=== PATIENT | female | born 1940 | race Two or more races ===

== ENCOUNTER 2019-09-26 13:10 | Inpatient (IN) | payer MEDICARE, MEDICAID ==
[~2019-09-26] VITALS: Ht 165.1 cm; Wt 56.9 kg
[2019-09-26] MEDS ORDERED: ONDANSETRON HCL 4MG/2ML INJ IV STA (13:42)
[2019-09-26] MEDS ORDERED: SODIUM CHLORIDE 0.9% 1,000 ML IV ONE ×2 (13:42→16:45)
[2019-09-26] MEDS ORDERED: MORPHINE SULFATE 4 MG/ML CPJ (NOT FOR IM USE) IV STA (13:42)
[2019-09-26 14:09] LABS: HEMATOCRIT. 39.6 % (36.0-48.0); HEMOGLOBIN. 13.3 g/dL (12.0-16.0); MEAN CORPUSCULAR HEMOGLOBIN 30.4 pg (28.0-32.0); MEAN CORPUSCULAR VOLUME 90.9 fL (81.0-99.0); RED BLOOD CELL COUNT 4.36 mill/uL (4.2-5.4); RED CELL DISTRIBUTION WIDTH 14.8 % (11.6-14.6)
[2019-09-26 14:15] LABS: CHLORIDE 99 mEq/L (98-107)
[2019-09-26 15:32] LABS: PROTHROMBIN TIME 10.2 sec (9.6-11.0)
[2019-09-26 15:39] LABS: MEAN PLATELET VOLUME 7.8 fl (7.4-10.4); PLATELET 266 x1000/uL (130-400)
[2019-09-26 15:41] LABS: PLATELET ESTIMATE NORMAL
[2019-09-26] MEDS ORDERED: CLONIDINE 0.1MG TABLET PO PRN (16:45)
[2019-09-26] MEDS ORDERED: ACETAMINOPHEN 325MG TABLET PO PRN (16:45)
[2019-09-26 21:00] VITALS: BP 139/82
[2019-09-26 22:00] VITALS: BP 119/76
[2019-09-26] MEDS ORDERED: CAND32TA8 PO (22:12)
[2019-09-26] MEDS ORDERED: AMLO5TAB88 PO (22:12)
[2019-09-26] MEDS ORDERED: ALEN70TA3 PO (22:12)
[2019-09-27] VITALS: BP 138/78
[2019-09-27] MEDS: HYDROCODONE/ACETAMINOPHEN 5/325MG TABLET PO PRN ×3 (02:37→23:25)
[2019-09-27 04:00] VITALS: BP 143/79
[2019-09-27 07:10] LABS: BASOPHILS % 0.2 % (0.0-2.0); HEMATOCRIT. 36.4 % (36.0-48.0); HEMOGLOBIN. 12.2 g/dL (12.0-16.0); LYMPHOCYTES % 8.3 % (20.0-50.0); MEAN CORPUSCULAR HEMOGLOBIN 30.6 pg (28.0-32.0); MEAN CORPUSCULAR VOLUME 91.6 fL (81.0-99.0); MONOCYTES % 7.8 % (2.0-8.0); NEUTROPHILS % 83.7 % (40.0-76.0); PLATELET 255 x1000/uL (130-400); RED BLOOD CELL COUNT 3.97 mill/uL (4.2-5.4); RED CELL DISTRIBUTION WIDTH 14.5 % (11.6-14.6)
[2019-09-27 07:12] LABS: CHLORIDE 98 mEq/L (98-107)
[2019-09-27 08:00] VITALS: BP 140/75
[2019-09-27] MEDS: ENOXAPARIN 40MG/0.4ML SYR SUBCUT SCH (09:23)
[2019-09-27] MEDS: AMLODIPINE 5MG TABLET PO SCH (09:24)
[2019-09-27] MEDS: SODIUM CHLORIDE 0.9% 1,000 ML IV SCH (10:45)
[2019-09-27 12:00] VITALS: BP 133/63
[2019-09-27 16:00] VITALS: BP 129/72
[2019-09-27 20:00] VITALS: BP 131/69
[2019-09-28] VITALS (7 sets, daily range): BP systolic 125–147; BP diastolic 67–94
[2019-09-28] MEDS: SODIUM CHLORIDE 0.9% 1,000 ML IV SCH (02:06)
[2019-09-28] MEDS: HYDROCODONE/ACETAMINOPHEN 5/325MG TABLET PO PRN (05:44)
[2019-09-28 07:28] LABS: CHLORIDE 100 mEq/L (98-107)
[2019-09-28 07:34] LABS: BASOPHILS % 0.7 % (0.0-2.0); EOSINOPHILS % 0.5 % (0.0-5.0); HEMATOCRIT. 33.7 % (36.0-48.0); HEMOGLOBIN. 11.4 g/dL (12.0-16.0); LYMPHOCYTES % 9.5 % (20.0-50.0); MEAN CORPUSCULAR HEMOGLOBIN 30.8 pg (28.0-32.0); MEAN CORPUSCULAR VOLUME 91.4 fL (81.0-99.0); MEAN PLATELET VOLUME 7.9 fl (7.4-10.4); MONOCYTES % 8.2 % (2.0-8.0); NEUTROPHILS % 81.1 % (40.0-76.0); PLATELET 220 x1000/uL (130-400); RED BLOOD CELL COUNT 3.69 mill/uL (4.2-5.4); RED CELL DISTRIBUTION WIDTH 14.5 % (11.6-14.6)
[2019-09-28] MEDS: AMLODIPINE 5MG TABLET PO SCH (09:00)
[2019-09-28] MEDS: ENOXAPARIN 40MG/0.4ML SYR SUBCUT SCH (09:00)
[2019-09-28] MEDS: DOCUSATE SODIUM 250MG CAPSULE PO SCH (11:00)
[2019-09-28] MEDS ORDERED: POTASSIUM CHLORIDE INJ 40 MEQ in DEXT 5% WATER 500 ML IV SCH (12:00)
[2019-09-28] MEDS: MORPHINE SULFATE 2 MG/ML CPJ (NOT FOR IM USE) IV PRN (13:30)
[2019-09-28] MEDS ORDERED: ROPIVACAINE HCL 10MG/ML 20 ML VIAL EPI ONE (17:23)
[2019-09-28] MEDS ORDERED: KETOROLAC 30MG/ML VIAL ONE (17:23)
[2019-09-28] MEDS ORDERED: MORPHINE SULFATE/PF 1MG/ML 10ML AMP ONE (17:23)
[2019-09-28] MEDS ORDERED: EPINEPHRINE 1:1000 1 MG/ML AMP ONE (17:23)
[2019-09-28] MEDS ORDERED: BACITRACIN 50,000 UNITS/VIAL ONE (17:24)
[2019-09-28] MEDS ORDERED: VANCOMYCIN HCL 1 GM/VIAL ONE (17:24)
[2019-09-28] MEDS ORDERED: TRANEXAMIC ACID 1,000 MG/10 ML IV SCH (17:30)
[2019-09-28] MEDS ORDERED: TRANEXAMIC ACID 1,000 MG in SODIUM CHLORIDE 0.9% 100 ML IV NR ×4 (17:30)
[2019-09-28] MEDS ORDERED: FENTANYL CITRATE/PF 50MCG/ML 2ML VIAL ONE (18:11)
[2019-09-28] MEDS ORDERED: MIDAZOLAM HCL 2 MG/2 ML VIAL ONE (18:12)
[2019-09-28] MEDS ORDERED: LIDOCAINE HCL/PF 1% 10 MG/ML 5ML VIAL ONE (18:12)
[2019-09-28] MEDS ORDERED: PHENYLEPHRINE HCL 10 MG/ML 1ML (IV VIAL) IV ONE (18:23)
[2019-09-28] MEDS ORDERED: STERILE WATER FOR INJECTION 10ML VIAL ONE (18:23)
[2019-09-28] MEDS ORDERED: ROCURONIUM BROMIDE 10MG/ML VIAL 5ML IV ONE (18:28)
[2019-09-28] MEDS ORDERED: ESMOLOL HCL 10MG/ML 10ML VIAL IV ONE (18:35)
[2019-09-28] MEDS ORDERED: EPHEDRINE SULFATE 50MG/ML VIAL ONE (18:39)
[2019-09-28] MEDS ORDERED: SODIUM CHLORIDE 0.9% 10ML VIAL ONE ×2 (18:39→18:54)
[2019-09-28] MEDS ORDERED: CEFAZOLIN SODIUM 1000MG/VIAL ONE (18:54)
[2019-09-28] MEDS ORDERED: DEXAMETHASONE 4MG/ML 1ML VIAL ONE (19:08)
[2019-09-28] MEDS ORDERED: ONDANSETRON HCL 4MG/2ML INJ ONE (19:10)
[2019-09-28] MEDS ORDERED: CEFAZOLIN 1000MG PREMIX 50 ML IV SCH (23:15)
[2019-09-28] MEDS ORDERED: KETOROLAC 30MG/ML VIAL IV PRN (23:15)
[2019-09-28] MEDS ORDERED: HYDROMORPHONE HCL/PF 2MG/ML CPJ IV PRN (23:45)
[2019-09-29] VITALS (73 sets, daily range): BP systolic 92–144; BP diastolic 43–127
[2019-09-29 00:47] LABS: BG BASE EXCESS -2.9 mmol/L (-2.0-2.0); BG CARBOXYHEMOGLOBIN 0.3 % (0.5-1.5); BG DEOXYHEMOGLOBIN 3.1 % (0.0-5.0); BG FRACTION INSPIRED OXYGEN 100; BG HCO3 ACT 21.3 mmol/L (22.0-26.0); BG METHEMOGLOBIN 0.1 % (0.0-1.5); BG OXYGEN SATURATION 96.9 % (92.0-98.5); BG OXYHEMOGLOBIN 96.5 % (94.0-97.0); BG PCO2 34.6 mmHg (35.0-45.0); BG PH 7.407 (7.350-7.450); BG PO2 92.3 mmHg (75.0-100.0); BG SAMPLE SITE RIGHT BRACHIAL; BG TIDAL VOLUME(mL) 500 mL; BG TOTAL HEMOGLOBIN 10.6 g/dL (12.0-18.0); BG VENT MODE VENT - A/C; BG VENT RATE 12 set
[2019-09-29] MEDS ORDERED: PROPOFOL 10MG/ML 100ML 100 ML IV PRN (01:00)
[2019-09-29 01:13] LABS: HEMATOCRIT. 30.6 % (36.0-48.0); HEMOGLOBIN. 10.3 g/dL (12.0-16.0); MEAN CORPUSCULAR VOLUME 91.6 fL (81.0-99.0); MEAN PLATELET VOLUME 7.5 fl (7.4-10.4); PLATELET 206 x1000/uL (130-400); RED BLOOD CELL COUNT 3.34 mill/uL (4.2-5.4); RED CELL DISTRIBUTION WIDTH 14.2 % (11.6-14.6)
[2019-09-29 01:18] LABS: CHLORIDE 101 mEq/L (98-107)
[2019-09-29 02:06] LABS: PLATELET ESTIMATE NORMAL
[2019-09-29] MEDS: CEFAZOLIN 1000MG PREMIX 50 ML IV SCH ×3 (03:15→19:02)
[2019-09-29] MEDS: SODIUM CHLORIDE 0.9% 1,000 ML IV SCH ×3 (03:15→15:54)
[2019-09-29 05:38] LABS: HEMATOCRIT. 27.8 % (36.0-48.0); HEMOGLOBIN. 9.6 g/dL (12.0-16.0); MEAN CORPUSCULAR HEMOGLOBIN 31.5 pg (28.0-32.0); MEAN CORPUSCULAR VOLUME 91.1 fL (81.0-99.0); MEAN PLATELET VOLUME 7.9 fl (7.4-10.4); PLATELET 192 x1000/uL (130-400); RED BLOOD CELL COUNT 3.06 mill/uL (4.2-5.4)
[2019-09-29 05:41] LABS: CHLORIDE 101 mEq/L (98-107)
[2019-09-29] MEDS: MORPHINE SULFATE 2 MG/ML CPJ (NOT FOR IM USE) IV PRN (08:08)
[2019-09-29 08:26] LABS: PLATELET ESTIMATE NORMAL
[2019-09-29] MEDS: AMLODIPINE 5MG TABLET PO SCH (09:00)
[2019-09-29] MEDS: DOCUSATE SODIUM 250MG CAPSULE PO SCH (09:00)
[2019-09-29] MEDS: ENOXAPARIN 40MG/0.4ML SYR SUBCUT SCH (09:00)
[2019-09-29] MEDS ORDERED: FUROSEMIDE 20MG/2ML VIAL IVP NR (10:15)
[2019-09-29 10:35] LABS: BG BASE EXCESS -1.9 mmol/L (-2.0-2.0); BG CARBOXYHEMOGLOBIN 0.3 % (0.5-1.5); BG DEOXYHEMOGLOBIN 1.8 % (0.0-5.0); BG FRACTION INSPIRED OXYGEN 100; BG HCO3 ACT 21.8 mmol/L (22.0-26.0); BG METHEMOGLOBIN 0.1 % (0.0-1.5); BG OXYGEN SATURATION 98.2 % (92.0-98.5); BG OXYHEMOGLOBIN 97.8 % (94.0-97.0); BG PCO2 32.8 mmHg (35.0-45.0); BG PO2 121.6 mmHg (75.0-100.0); BG SAMPLE SITE RIGHT RADIAL; BG TIDAL VOLUME(mL) 500 mL; BG TOTAL HEMOGLOBIN 9.8 g/dL (12.0-18.0); BG VENT MODE VENT - A/C; BG VENT RATE 12 set
[2019-09-29] MEDS ORDERED: IPRATROPIUM/ALBUTEROL 0.5-3(2.5)MG/3ML NEB HHN PRN (10:45)
[2019-09-29] MEDS ORDERED: IOHEXOL-350 100 ML BOTTLE ONE (11:48)
[2019-09-29] MEDS: PROPOFOL 10MG/ML 100ML 100 ML IV PRN (14:56)
[2019-09-29] MEDS: IPRATROPIUM/ALBUTEROL 0.5-3(2.5)MG/3ML NEB HHN SCH ×2 (15:10→20:24)
[2019-09-29] MEDS: ENOXAPARIN 60MG/0.6ML SYR SUBCUT SCH (15:47)
[2019-09-29] MEDS: PIPERACILLIN/TAZOBACTAM 3.375 G in DEXT 5% WATER 100 ML IV SCH (20:27)
[2019-09-30] VITALS (53 sets, daily range): BP systolic 94–136; BP diastolic 38–100
[2019-09-30] MEDS: IPRATROPIUM/ALBUTEROL 0.5-3(2.5)MG/3ML NEB HHN SCH ×4 (01:23→21:02)
[2019-09-30] MEDS: PIPERACILLIN/TAZOBACTAM 3.375 G in DEXT 5% WATER 100 ML IV SCH ×4 (01:55→20:49)
[2019-09-30] MEDS: CEFAZOLIN 1000MG PREMIX 50 ML IV SCH ×3 (02:30→21:29)
[2019-09-30] MEDS: PROPOFOL 10MG/ML 100ML 100 ML IV PRN ×2 (03:30→10:16)
[2019-09-30 05:31] LABS: CHLORIDE 101 mEq/L (98-107)
[2019-09-30 05:33] LABS: BASOPHILS % 0.2 % (0.0-2.0); EOSINOPHILS % 0.1 % (0.0-5.0); HEMOGLOBIN. 8.6 g/dL (12.0-16.0); MEAN CORPUSCULAR HEMOGLOBIN 31.5 pg (28.0-32.0); MEAN PLATELET VOLUME 8.2 fl (7.4-10.4); MONOCYTES % 9.2 % (2.0-8.0); NEUTROPHILS % 80.5 % (40.0-76.0); PLATELET 218 x1000/uL (130-400); RED BLOOD CELL COUNT 2.71 mill/uL (4.2-5.4); RED CELL DISTRIBUTION WIDTH 14.5 % (11.6-14.6)
[2019-09-30] MEDS: ENOXAPARIN 60MG/0.6ML SYR SUBCUT SCH ×2 (06:25→18:21)
[2019-09-30] MEDS: MORPHINE SULFATE 2 MG/ML CPJ (NOT FOR IM USE) IV PRN ×2 (08:01→17:34)
[2019-09-30] MEDS: AMLODIPINE 5MG TABLET PO SCH (08:01)
[2019-09-30] MEDS ORDERED: POTASSIUM CHLORIDE 20MEQ/PACKET PO NR (08:54)
[2019-09-30 08:57] LABS: BG CARBOXYHEMOGLOBIN 0.2 % (0.5-1.5); BG DEOXYHEMOGLOBIN 1.9 % (0.0-5.0); BG FRACTION INSPIRED OXYGEN 70; BG HCO3 ACT 22.2 mmol/L (22.0-26.0); BG METHEMOGLOBIN 0.4 % (0.0-1.5); BG OXYGEN SATURATION 98.1 % (92.0-98.5); BG OXYHEMOGLOBIN 97.5 % (94.0-97.0); BG PH 7.472 (7.350-7.450); BG PO2 121.5 mmHg (75.0-100.0); BG SAMPLE SITE RIGHT RADIAL; BG TIDAL VOLUME(mL) 500 mL; BG VENT MODE VENT - A/C; BG VENT RATE 12 set
[2019-09-30] MEDS: DOCUSATE SODIUM SUGAR FREE 100MG/10ML UDC NG SCH (09:05)
[2019-09-30 12:32] LABS: BG BASE EXCESS -1.2 mmol/L (-2.0-2.0); BG CARBOXYHEMOGLOBIN 0.3 % (0.5-1.5); BG DEOXYHEMOGLOBIN 5.9 % (0.0-5.0); BG FRACTION INSPIRED OXYGEN 50; BG HCO3 ACT 22.3 mmol/L (22.0-26.0); BG METHEMOGLOBIN 0.3 % (0.0-1.5); BG OXYGEN SATURATION 94.1 % (92.0-98.5); BG OXYHEMOGLOBIN 93.5 % (94.0-97.0); BG PCO2 32.1 mmHg (35.0-45.0); BG PH 7.459 (7.350-7.450); BG PRESSURE SUPPORT 8; BG SAMPLE SITE RIGHT RADIAL; BG VENT MODE VENT - CPAP
[2019-10-01] VITALS (48 sets, daily range): BP systolic 89–138; BP diastolic 40–75
[2019-10-01] MEDS: IPRATROPIUM/ALBUTEROL 0.5-3(2.5)MG/3ML NEB HHN SCH ×4 (01:44→20:05)
[2019-10-01] MEDS: PIPERACILLIN/TAZOBACTAM 3.375 G in DEXT 5% WATER 100 ML IV SCH ×4 (02:16→19:39)
[2019-10-01 05:37] LABS: BASOPHILS % 0.3 % (0.0-2.0); EOSINOPHILS % 0.3 % (0.0-5.0); HEMATOCRIT. 23.3 % (36.0-48.0); HEMOGLOBIN. 7.9 g/dL (12.0-16.0); LYMPHOCYTES % 15.4 % (20.0-50.0); MEAN CORPUSCULAR HEMOGLOBIN 31.2 pg (28.0-32.0); MEAN CORPUSCULAR VOLUME 91.5 fL (81.0-99.0); MEAN PLATELET VOLUME 7.7 fl (7.4-10.4); MONOCYTES % 9.3 % (2.0-8.0); NEUTROPHILS % 74.7 % (40.0-76.0); PLATELET 215 x1000/uL (130-400); RED BLOOD CELL COUNT 2.54 mill/uL (4.2-5.4); RED CELL DISTRIBUTION WIDTH 14.6 % (11.6-14.6)
[2019-10-01 06:04] LABS: CHLORIDE 102 mEq/L (98-107)
[2019-10-01] MEDS: ENOXAPARIN 60MG/0.6ML SYR SUBCUT SCH ×2 (06:04→17:05)
[2019-10-01] MEDS: AMLODIPINE 5MG TABLET PO SCH (08:35)
[2019-10-01] MEDS: HYDROCODONE/ACETAMINOPHEN 5/325MG TABLET PO PRN (08:35)
[2019-10-01] MEDS: DOCUSATE SODIUM SUGAR FREE 100MG/10ML UDC NG SCH (08:36)
[2019-10-01 09:09] LABS: BG BASE EXCESS 0.8 mmol/L (-2.0-2.0); BG CARBOXYHEMOGLOBIN 0.3 % (0.5-1.5); BG DEOXYHEMOGLOBIN 4.9 % (0.0-5.0); BG FRACTION INSPIRED OXYGEN 60; BG HCO3 ACT 24.6 mmol/L (22.0-26.0); BG METHEMOGLOBIN 0.3 % (0.0-1.5); BG OXYGEN SATURATION 95.1 % (92.0-98.5); BG OXYHEMOGLOBIN 94.5 % (94.0-97.0); BG PCO2 35.7 mmHg (35.0-45.0); BG PH 7.457 (7.350-7.450); BG PO2 72.1 mmHg (75.0-100.0); BG SAMPLE SITE RIGHT RADIAL; BG TOTAL HEMOGLOBIN 7.9 g/dL (12.0-18.0); BG VENT MODE MASK - AEROSOL
[2019-10-01] MEDS ORDERED: POTASSIUM CHLORIDE 20MEQ TABLET SR PO NR (11:00)
[2019-10-01] MEDS ORDERED: FUROSEMIDE 20MG/2ML VIAL IVP NR (11:00)
[2019-10-02] VITALS (11 sets, daily range): BP systolic 118–141; BP diastolic 58–96
[2019-10-02] MEDS: PIPERACILLIN/TAZOBACTAM 3.375 G in DEXT 5% WATER 100 ML IV SCH ×4 (01:33→20:27)
[2019-10-02] MEDS: IPRATROPIUM/ALBUTEROL 0.5-3(2.5)MG/3ML NEB HHN SCH ×4 (02:45→21:07)
[2019-10-02] MEDS: ENOXAPARIN 60MG/0.6ML SYR SUBCUT SCH ×2 (06:54→19:50)
[2019-10-02 06:55] LABS: BASOPHILS % 0.6 % (0.0-2.0); EOSINOPHILS % 1.5 % (0.0-5.0); HEMATOCRIT. 21.6 % (36.0-48.0); HEMOGLOBIN. 7.3 g/dL (12.0-16.0); LYMPHOCYTES % 22.4 % (20.0-50.0); MEAN PLATELET VOLUME 7.8 fl (7.4-10.4); MONOCYTES % 9.2 % (2.0-8.0); NEUTROPHILS % 66.3 % (40.0-76.0); PLATELET 244 x1000/uL (130-400); RED BLOOD CELL COUNT 2.35 mill/uL (4.2-5.4); RED CELL DISTRIBUTION WIDTH 14.6 % (11.6-14.6)
[2019-10-02] MEDS: DOCUSATE SODIUM SUGAR FREE 100MG/10ML UDC NG SCH (08:33)
[2019-10-02] MEDS: AMLODIPINE 5MG TABLET PO SCH (08:44)
[2019-10-02 09:38] LABS: CHLORIDE 103 mEq/L (98-107)
[2019-10-02] MEDS: ONDANSETRON HCL 4MG/2ML INJ IV PRN (11:36)
[2019-10-02 22:57] LABS: CLARITY URINE CLEAR (CLEAR); COLOR URINE YELLOW (YELLOW); KETONES URINE 4+ (NEGATIVE); LEUKOCYTE ESTERASE URINE NEGATIVE (NEGATIVE); NITRITE URINE NEGATIVE (NEGATIVE); OCCULT BLOOD URINE 1+ (NEGATIVE); PH URINE 5.5 (4.5-8.0); PROTEIN URINE 1+ (NEGATIVE); SPECIFIC GRAVITY URINE 1.025 (1.005-1.030)
[2019-10-03] VITALS (12 sets, daily range): BP systolic 125–143; BP diastolic 59–100
[2019-10-03] MEDS: IPRATROPIUM/ALBUTEROL 0.5-3(2.5)MG/3ML NEB HHN SCH ×4 (01:03→21:21)
[2019-10-03] MEDS: PIPERACILLIN/TAZOBACTAM 3.375 G in DEXT 5% WATER 100 ML IV SCH ×4 (02:15→19:40)
[2019-10-03] MEDS: ENOXAPARIN 60MG/0.6ML SYR SUBCUT SCH ×2 (06:31→19:39)
[2019-10-03 07:26] LABS: BASOPHILS % 0.7 % (0.0-2.0); EOSINOPHILS % 0.9 % (0.0-5.0); HEMATOCRIT. 22.7 % (36.0-48.0); HEMOGLOBIN. 7.6 g/dL (12.0-16.0); LYMPHOCYTES % 20.9 % (20.0-50.0); MEAN CORPUSCULAR HEMOGLOBIN 30.8 pg (28.0-32.0); MEAN CORPUSCULAR VOLUME 92.6 fL (81.0-99.0); MEAN PLATELET VOLUME 7.6 fl (7.4-10.4); MONOCYTES % 9.7 % (2.0-8.0); NEUTROPHILS % 67.8 % (40.0-76.0); PLATELET 303 x1000/uL (130-400); RED BLOOD CELL COUNT 2.45 mill/uL (4.2-5.4); RED CELL DISTRIBUTION WIDTH 14.1 % (11.6-14.6)
[2019-10-03 07:47] LABS: CHLORIDE 104 mEq/L (98-107)
[2019-10-03] MEDS: AMLODIPINE 5MG TABLET PO SCH (08:13)
[2019-10-03] MEDS: DOCUSATE SODIUM SUGAR FREE 100MG/10ML UDC NG SCH (08:13)
[2019-10-03] MEDS ORDERED: POTASSIUM CHLORIDE 20MEQ TABLET SR PO NR (09:30)
[2019-10-04] VITALS (12 sets, daily range): BP systolic 125–162; BP diastolic 36–85
[2019-10-04] MEDS: PIPERACILLIN/TAZOBACTAM 3.375 G in DEXT 5% WATER 100 ML IV SCH ×4 (02:41→20:25)
[2019-10-04] MEDS: IPRATROPIUM/ALBUTEROL 0.5-3(2.5)MG/3ML NEB HHN SCH ×4 (04:18→20:12)
[2019-10-04 06:10] LABS: BASOPHILS % 0.5 % (0.0-2.0); EOSINOPHILS % 1.6 % (0.0-5.0); HEMOGLOBIN. 7.8 g/dL (12.0-16.0); LYMPHOCYTES % 23.2 % (20.0-50.0); MEAN CORPUSCULAR HEMOGLOBIN 31.1 pg (28.0-32.0); MEAN CORPUSCULAR VOLUME 91.4 fL (81.0-99.0); MEAN PLATELET VOLUME 7.3 fl (7.4-10.4); NEUTROPHILS % 63.7 % (40.0-76.0); PLATELET 364 x1000/uL (130-400); RED BLOOD CELL COUNT 2.52 mill/uL (4.2-5.4); RED CELL DISTRIBUTION WIDTH 14.6 % (11.6-14.6)
[2019-10-04 06:14] LABS: CHLORIDE 102 mEq/L (98-107)
[2019-10-04] MEDS: ENOXAPARIN 60MG/0.6ML SYR SUBCUT SCH ×2 (06:29→17:03)
[2019-10-04] MEDS: AMLODIPINE 5MG TABLET PO SCH (08:19)
[2019-10-04] MEDS: DOCUSATE SODIUM SUGAR FREE 100MG/10ML UDC NG SCH (08:20)
[2019-10-04 11:22] LABS: TOTAL IRON BINDING CAPACITY 192 ug/dL (250-450)
[2019-10-05] VITALS (9 sets, daily range): BP systolic 118–148; BP diastolic 59–77
[2019-10-05] MEDS: IPRATROPIUM/ALBUTEROL 0.5-3(2.5)MG/3ML NEB HHN SCH ×3 (01:57→13:13)
[2019-10-05] MEDS: PIPERACILLIN/TAZOBACTAM 3.375 G in DEXT 5% WATER 100 ML IV SCH ×3 (02:12→15:04)
[2019-10-05] MEDS: ENOXAPARIN 60MG/0.6ML SYR SUBCUT SCH (05:26)
[2019-10-05 06:37] LABS: CHLORIDE 100 mEq/L (98-107)
[2019-10-05 06:45] LABS: BASOPHILS % 0.8 % (0.0-2.0); EOSINOPHILS % 2.6 % (0.0-5.0); HEMATOCRIT. 23.2 % (36.0-48.0); HEMOGLOBIN. 7.8 g/dL (12.0-16.0); LYMPHOCYTES % 25.7 % (20.0-50.0); MEAN CORPUSCULAR VOLUME 91.6 fL (81.0-99.0); MEAN PLATELET VOLUME 7.5 fl (7.4-10.4); MONOCYTES % 10.5 % (2.0-8.0); NEUTROPHILS % 60.4 % (40.0-76.0); PLATELET 393 x1000/uL (130-400); RED BLOOD CELL COUNT 2.53 mill/uL (4.2-5.4); RED CELL DISTRIBUTION WIDTH 14.5 % (11.6-14.6)
[2019-10-05] MEDS: DOCUSATE SODIUM SUGAR FREE 100MG/10ML UDC NG SCH (08:06)
[2019-10-05] MEDS: AMLODIPINE 5MG TABLET PO SCH (08:07)
[2019-10-05] MEDS: ONDANSETRON HCL 4MG/2ML INJ IV PRN (09:46)
[2019-10-05] MEDS ORDERED: FERROUS SULFATE 325MG TABLET PO SCH (12:20)
== END 2019-10-05 16:15 | DRG 469 ==
LOC: ER 13:10 → 6EST 15:26 → ENRESERV 18:59 → MICUNO 09-28 23:45 → 3WST 10-01 22:57
PROVIDERS: ADMIT Internal Medicine; ATTEND Internal Medicine
PROC: 0SR90JA Replacement of Right Hip Joint with Synthetic Substitute, Uncemented, Open Approach (ICD-10-PCS; principal; 2019-09-28)
PROC: 5A1945Z Respiratory Ventilation, 24-96 Consecutive Hours (ICD-10-PCS; 2019-09-28)
PROC: 0BH17EZ Insertion of Endotracheal Airway into Trachea, Via Natural or Artificial Opening (ICD-10-PCS; 2019-09-28)
PROC: BQ101ZZ Fluoroscopy of Right Hip using Low Osmolar Contrast (ICD-10-PCS; 2019-09-28)
DX: S72.031A Displaced midcervical fracture of right femur, initial encounter for closed fracture (principal); I26.99 Other pulmonary embolism without acute cor pulmonale; J96.01 Acute respiratory failure with hypoxia; J18.9 Pneumonia, unspecified organism; E87.1 Hypo-osmolality and hyponatremia; J98.11 Atelectasis; J91.8 Pleural effusion in other conditions classified elsewhere; W18.30XA Fall on same level, unspecified, initial encounter; M17.10 Unilateral primary osteoarthritis, unspecified knee; D72.829 Elevated white blood cell count, unspecified; I11.9 Hypertensive heart disease without heart failure; E83.51 Hypocalcemia; M81.0 Age-related osteoporosis without current pathological fracture; Z79.899 Other long term (current) drug therapy; Y93.89 Activity, other specified; Y92.098 Other place in other non-institutional residence as the place of occurrence of the external cause; Y99.8 Other external cause status; Z98.49 Cataract extraction status, unspecified eye
CPT/HCPCS: 36415; 36600; 71045; 71275; 72170; 73502; 73503; 73560; 76000; 80048; 81003; 82375; 82728; 82805; 82962; 83036; 83540; 83550; 83880; 84145; 84478; 88305; 88311; 92610; 93005; 93306; 93970; 94002; 94003; 94640; 94667; 96361; 96375; 97116; 97162; 97167; 97530; 99285; A4216; J0690; J1100; J1650; J1885; J1940; J2250; J2270; J2274; J2370; J2405; J2543; J2704; J2795; J3010; J3370; J3480; J3490; J7030; J7040; J7050; J7060; J7620; Q9967

== ENCOUNTER 2019-10-05 16:20 | Inpatient (IN) | payer MEDICARE, MEDICAID ==
[~2019-10-05] VITALS: Ht 154.9 cm; Wt 61.2 kg
[~2019-10-05 16:20] MED LIST: ALEN70TA3 PO; AMLO5TAB88 PO; CAND32TA8 PO
[2019-10-05] MEDS ORDERED: CLONIDINE 0.1MG TABLET PO PRN (17:00)
[2019-10-05] MEDS ORDERED: ACETAMINOPHEN 325MG TABLET PO PRN (17:00)
[2019-10-05] MEDS ORDERED: ONDANSETRON HCL 4MG/2ML INJ IV PRN (17:00)
[2019-10-05 17:09] VITALS: BP 133/67
[2019-10-05 17:49] VITALS: BP 133/67
[2019-10-05] MEDS: FERROUS SULFATE 325MG TABLET PO SCH (18:30)
[2019-10-05] MEDS: ENOXAPARIN 60MG/0.6ML SYR SUBCUT SCH (18:30)
[2019-10-05 20:00] VITALS: BP 131/54
[2019-10-05] MEDS: PIPERACILLIN/TAZOBACTAM 3.375 G in DEXT 5% WATER 100 ML IV SCH (21:13)
[2019-10-05] MEDS: ACETAMINOPHEN 325MG TABLET PO PRN (21:13)
[2019-10-05] MEDS: DOCUSATE SODIUM 100MG CAPSULE PO SCH (21:18)
[2019-10-06] MEDS: IPRATROPIUM/ALBUTEROL 0.5-3(2.5)MG/3ML NEB HHN SCH ×4 (01:21→21:34)
[2019-10-06] MEDS: PIPERACILLIN/TAZOBACTAM 3.375 G in DEXT 5% WATER 100 ML IV SCH ×4 (03:00→20:43)
[2019-10-06] MEDS: TRAMADOL 50MG TABLET PO PRN (06:26)
[2019-10-06] MEDS: ENOXAPARIN 60MG/0.6ML SYR SUBCUT SCH ×2 (06:26→17:20)
[2019-10-06 07:02] LABS: BASOPHILS % 0.6 % (0.0-2.0); EOSINOPHILS % 5.1 % (0.0-5.0); HEMATOCRIT. 24.4 % (36.0-48.0); HEMOGLOBIN. 8.1 g/dL (12.0-16.0); MEAN CORPUSCULAR HEMOGLOBIN 30.6 pg (28.0-32.0); MEAN CORPUSCULAR VOLUME 92.9 fL (81.0-99.0); MEAN PLATELET VOLUME 7.7 fl (7.4-10.4); MONOCYTES % 11.7 % (2.0-8.0); NEUTROPHILS % 57.6 % (40.0-76.0); PLATELET 432 x1000/uL (130-400); RED BLOOD CELL COUNT 2.63 mill/uL (4.2-5.4); RED CELL DISTRIBUTION WIDTH 14.6 % (11.6-14.6)
[2019-10-06 08:00] VITALS: BP 131/56
[2019-10-06] MEDS: FERROUS SULFATE 325MG TABLET PO SCH ×3 (08:36→16:17)
[2019-10-06] MEDS: AMLODIPINE 5MG TABLET PO SCH (08:36)
[2019-10-06] MEDS: DOCUSATE SODIUM 100MG CAPSULE PO SCH ×3 (08:36→16:17)
[2019-10-06 20:00] VITALS: BP 124/56
[2019-10-07] MEDS: IPRATROPIUM/ALBUTEROL 0.5-3(2.5)MG/3ML NEB HHN SCH ×4 (00:56→21:21)
[2019-10-07] MEDS: PIPERACILLIN/TAZOBACTAM 3.375 G in DEXT 5% WATER 100 ML IV SCH ×4 (05:20→20:40)
[2019-10-07] MEDS: TRAMADOL 50MG TABLET PO PRN (06:31)
[2019-10-07] MEDS: ENOXAPARIN 60MG/0.6ML SYR SUBCUT SCH ×2 (06:32→17:44)
[2019-10-07 07:58] VITALS: BP 130/58
[2019-10-07 08:00] VITALS: BP 130/58
[2019-10-07] MEDS: DOCUSATE SODIUM 100MG CAPSULE PO SCH ×2 (09:00→09:16)
[2019-10-07] MEDS: AMLODIPINE 5MG TABLET PO SCH (09:16)
[2019-10-07] MEDS: FERROUS SULFATE 325MG TABLET PO SCH ×2 (09:17→17:44)
[2019-10-07 10:08] LABS: BASOPHILS % 0.7 % (0.0-2.0); EOSINOPHILS % 1.7 % (0.0-5.0); HEMATOCRIT. 25.9 % (36.0-48.0); HEMOGLOBIN. 8.7 g/dL (12.0-16.0); LYMPHOCYTES % 18.3 % (20.0-50.0); MEAN CORPUSCULAR HEMOGLOBIN 31.2 pg (28.0-32.0); MEAN CORPUSCULAR VOLUME 92.7 fL (81.0-99.0); MEAN PLATELET VOLUME 7.4 fl (7.4-10.4); NEUTROPHILS % 72.3 % (40.0-76.0); PLATELET 565 x1000/uL (130-400); RED BLOOD CELL COUNT 2.79 mill/uL (4.2-5.4); RED CELL DISTRIBUTION WIDTH 14.8 % (11.6-14.6)
[2019-10-07 10:14] LABS: CHLORIDE 97 mEq/L (98-107)
[2019-10-07] MEDS: ONDANSETRON 4MG ODT PO PRN (10:31)
[2019-10-07] MEDS: BISACODYL 5MG TABLET PO PRN (12:28)
[2019-10-07] MEDS ORDERED: POTASSIUM CHLORIDE 20MEQ TABLET SR PO SCH (13:00)
[2019-10-07] MEDS ORDERED: BISACODYL 10MG SUPP PR PRN (13:00)
[2019-10-07] MEDS ORDERED: NA PHOS,M-B/NA PHOS,DI-BA ENEMA 118ML PR PRN (15:15)
[2019-10-07 20:00] VITALS: BP 117/53
[2019-10-08] MEDS: IPRATROPIUM/ALBUTEROL 0.5-3(2.5)MG/3ML NEB HHN SCH ×4 (01:35→22:28)
[2019-10-08] MEDS: PIPERACILLIN/TAZOBACTAM 3.375 G in DEXT 5% WATER 100 ML IV SCH ×4 (05:37→20:11)
[2019-10-08] MEDS: ENOXAPARIN 60MG/0.6ML SYR SUBCUT SCH ×2 (05:37→17:09)
[2019-10-08] MEDS: TRAMADOL 50MG TABLET PO PRN (05:51)
[2019-10-08] MEDS: FERROUS SULFATE 325MG TABLET PO SCH ×2 (08:20→17:09)
[2019-10-08] MEDS: AMLODIPINE 5MG TABLET PO SCH (08:20)
[2019-10-08 08:24] VITALS: BP 117/68
[2019-10-08] MEDS: DOCUSATE SODIUM 100MG CAPSULE PO SCH ×3 (08:24→17:00)
[2019-10-08 12:31] LABS: BASOPHILS % 0.9 % (0.0-2.0); EOSINOPHILS % 0.9 % (0.0-5.0); HEMATOCRIT. 28.4 % (36.0-48.0); HEMOGLOBIN. 9.4 g/dL (12.0-16.0); LYMPHOCYTES % 15.2 % (20.0-50.0); MEAN CORPUSCULAR HEMOGLOBIN 30.8 pg (28.0-32.0); MEAN PLATELET VOLUME 7.3 fl (7.4-10.4); MONOCYTES % 6.3 % (2.0-8.0); NEUTROPHILS % 76.7 % (40.0-76.0); PLATELET 624 x1000/uL (130-400); RED BLOOD CELL COUNT 3.05 mill/uL (4.2-5.4); RED CELL DISTRIBUTION WIDTH 15.1 % (11.6-14.6)
[2019-10-08 12:47] LABS: CHLORIDE 97 mEq/L (98-107)
[2019-10-08 20:00] VITALS: BP 121/52
[2019-10-09] MEDS: IPRATROPIUM/ALBUTEROL 0.5-3(2.5)MG/3ML NEB HHN SCH ×4 (03:42→20:41)
[2019-10-09] MEDS: ENOXAPARIN 60MG/0.6ML SYR SUBCUT SCH ×2 (05:39→17:17)
[2019-10-09] MEDS: TRAMADOL 50MG TABLET PO PRN ×2 (05:41→12:29)
[2019-10-09 07:51] VITALS: BP 123/67
[2019-10-09] MEDS: DOCUSATE SODIUM 100MG CAPSULE PO SCH ×2 (08:23→17:16)
[2019-10-09] MEDS: FERROUS SULFATE 325MG TABLET PO SCH ×2 (08:24→17:16)
[2019-10-09] MEDS: AMLODIPINE 5MG TABLET PO SCH (08:24)
[2019-10-09 12:38] VITALS: BP 119/58
[2019-10-09 20:00] VITALS: BP 113/54
[2019-10-09] MEDS: ACETAMINOPHEN 325MG TABLET PO PRN (22:17)
[2019-10-10] MEDS: ACETAMINOPHEN 325MG TABLET PO PRN ×2 (03:35→21:13)
[2019-10-10] MEDS: ENOXAPARIN 60MG/0.6ML SYR SUBCUT SCH ×2 (05:26→17:25)
[2019-10-10 06:00] VITALS: BP 119/70
[2019-10-10] MEDS: TRAMADOL 50MG TABLET PO PRN (07:09)
[2019-10-10 08:21] VITALS: BP 130/64
[2019-10-10] MEDS: DOCUSATE SODIUM 100MG CAPSULE PO SCH ×2 (09:07→17:25)
[2019-10-10] MEDS: FERROUS SULFATE 325MG TABLET PO SCH ×2 (09:07→17:25)
[2019-10-10] MEDS: AMLODIPINE 5MG TABLET PO SCH (09:07)
[2019-10-10] MEDS: IPRATROPIUM/ALBUTEROL 0.5-3(2.5)MG/3ML NEB HHN SCH ×3 (10:38→19:57)
[2019-10-10] MEDS ORDERED: LACTULOSE 20G/30ML UDC PO NR (11:45)
[2019-10-10] MEDS: ONDANSETRON 4MG ODT PO PRN (13:46)
[2019-10-10 20:00] VITALS: BP 110/70
[2019-10-11] MEDS: IPRATROPIUM/ALBUTEROL 0.5-3(2.5)MG/3ML NEB HHN SCH ×4 (00:04→21:46)
[2019-10-11] MEDS: BISACODYL 5MG TABLET PO PRN (04:50)
[2019-10-11] MEDS: ENOXAPARIN 60MG/0.6ML SYR SUBCUT SCH ×2 (05:39→17:06)
[2019-10-11 08:06] VITALS: BP 140/70
[2019-10-11] MEDS: FERROUS SULFATE 325MG TABLET PO SCH ×2 (08:21→17:05)
[2019-10-11] MEDS: TRAMADOL 50MG TABLET PO PRN (08:22)
[2019-10-11] MEDS: AMLODIPINE 5MG TABLET PO SCH (08:22)
[2019-10-11] MEDS: DOCUSATE SODIUM 100MG CAPSULE PO SCH ×2 (08:22→17:05)
[2019-10-11] MEDS: ONDANSETRON 4MG ODT PO PRN (09:53)
[2019-10-11 20:00] VITALS: BP 110/41
[2019-10-12] MEDS: IPRATROPIUM/ALBUTEROL 0.5-3(2.5)MG/3ML NEB HHN SCH ×4 (02:20→21:06)
[2019-10-12] MEDS: ENOXAPARIN 60MG/0.6ML SYR SUBCUT SCH ×2 (05:47→18:00)
[2019-10-12] MEDS: TRAMADOL 50MG TABLET PO PRN ×2 (07:55→12:08)
[2019-10-12 08:00] VITALS: BP 120/50
[2019-10-12] MEDS: DOCUSATE SODIUM 100MG CAPSULE PO SCH ×2 (09:00→16:10)
[2019-10-12] MEDS: AMLODIPINE 5MG TABLET PO SCH (09:00)
[2019-10-12] MEDS: FERROUS SULFATE 325MG TABLET PO SCH ×2 (09:00→16:10)
[2019-10-12] MEDS: BISACODYL 5MG TABLET PO PRN (16:10)
[2019-10-12 20:00] VITALS: BP 133/50
[2019-10-12] MEDS: ONDANSETRON 4MG ODT PO PRN (20:31)
[2019-10-13] MEDS: IPRATROPIUM/ALBUTEROL 0.5-3(2.5)MG/3ML NEB HHN SCH ×4 (02:34→21:19)
[2019-10-13] MEDS: ENOXAPARIN 60MG/0.6ML SYR SUBCUT SCH ×2 (06:05→17:20)
[2019-10-13 08:00] VITALS: BP 120/52
[2019-10-13] MEDS: FERROUS SULFATE 325MG TABLET PO SCH ×2 (08:22→17:17)
[2019-10-13] MEDS: DOCUSATE SODIUM 100MG CAPSULE PO SCH ×2 (08:22→17:18)
[2019-10-13] MEDS: ACETAMINOPHEN 325MG TABLET PO PRN (08:22)
[2019-10-13] MEDS: AMLODIPINE 5MG TABLET PO SCH (08:22)
[2019-10-13 20:00] VITALS: BP 140/67
[2019-10-14] MEDS: IPRATROPIUM/ALBUTEROL 0.5-3(2.5)MG/3ML NEB HHN SCH ×4 (01:43→21:40)
[2019-10-14] MEDS: ACETAMINOPHEN 325MG TABLET PO PRN (03:57)
[2019-10-14] MEDS: ENOXAPARIN 60MG/0.6ML SYR SUBCUT SCH ×2 (06:11→17:02)
[2019-10-14] MEDS: TRAMADOL 50MG TABLET PO PRN (07:24)
[2019-10-14 08:00] VITALS: BP 159/67
[2019-10-14] MEDS: AMLODIPINE 5MG TABLET PO SCH (08:54)
[2019-10-14] MEDS: DOCUSATE SODIUM 100MG CAPSULE PO SCH ×2 (08:54→17:01)
[2019-10-14] MEDS: FERROUS SULFATE 325MG TABLET PO SCH ×2 (08:54→17:00)
[2019-10-14 17:08] LABS: BASOPHILS % 0.9 % (0.0-2.0); EOSINOPHILS % 0.8 % (0.0-5.0); HEMATOCRIT. 28.7 % (36.0-48.0); HEMOGLOBIN. 9.2 g/dL (12.0-16.0); LYMPHOCYTES % 15.9 % (20.0-50.0); MEAN CORPUSCULAR HEMOGLOBIN 29.8 pg (28.0-32.0); MEAN PLATELET VOLUME 7.2 fl (7.4-10.4); MONOCYTES % 8.2 % (2.0-8.0); NEUTROPHILS % 74.2 % (40.0-76.0); PLATELET 672 x1000/uL (130-400); RED BLOOD CELL COUNT 3.09 mill/uL (4.2-5.4); RED CELL DISTRIBUTION WIDTH 15.9 % (11.6-14.6)
[2019-10-14 20:00] VITALS: BP 132/59
[2019-10-15] MEDS: IPRATROPIUM/ALBUTEROL 0.5-3(2.5)MG/3ML NEB HHN SCH (02:13)
[2019-10-15] MEDS: ENOXAPARIN 60MG/0.6ML SYR SUBCUT SCH (06:16)
[2019-10-15 07:47] VITALS: BP 130/66
[2019-10-15] MEDS: DOCUSATE SODIUM 100MG CAPSULE PO SCH (08:49)
[2019-10-15] MEDS: FERROUS SULFATE 325MG TABLET PO SCH (08:49)
[2019-10-15] MEDS: AMLODIPINE 5MG TABLET PO SCH (08:49)
[2019-10-15] MEDS ORDERED: FERR325T23 PO (09:31)
[2019-10-15] MEDS ORDERED: DOCU-138 PO (09:31)
[2019-10-15 10:02] VITALS: BP 130/66
[2019-10-15 12:42] VITALS: BP 128/72
[2019-10-15] MEDS: TRAMADOL 50MG TABLET PO PRN (12:42)
== END 2019-10-15 13:45 | disposition home health service (06) | DRG 535 ==
PROVIDERS: ADMIT Psychiatry & Neurology Neurology; ATTEND Internal Medicine
DX: S72.031A Displaced midcervical fracture of right femur, initial encounter for closed fracture (principal); J96.01 Acute respiratory failure with hypoxia; E87.1 Hypo-osmolality and hyponatremia; M81.0 Age-related osteoporosis without current pathological fracture; E83.51 Hypocalcemia; I10 Essential (primary) hypertension; D64.9 Anemia, unspecified; M19.90 Unspecified osteoarthritis, unspecified site; W10.9XXA Fall (on) (from) unspecified stairs and steps, initial encounter; Y92.009 Unspecified place in unspecified non-institutional (private) residence as the place of occurrence of the external cause; Y93.01 Activity, walking, marching and hiking; Y99.8 Other external cause status; Z98.49 Cataract extraction status, unspecified eye
CPT/HCPCS: 36415; 71045; 73502; 74018; 80048; 94640; 97110; 97116; 97162; 97167; 97530; 97535; J1650; J2405; J2543; J7040; J7060; J7620; Q0162